=== PATIENT | female | born 1995 | race African-American/Black ===

== ENCOUNTER → 2021-05-22 15:43 | Outpatient (CLI) | payer OTHER, SELFPAY ==
--- NOTE | 2021-05-22 | DI.MRI.S_ITS ---
PROCEDURE: MR ANKLE LT WO CON INDICATIONS: LEFT FOOT DEFORMITY TECHNIQUE: Noncontrast sagittal T1 spin echo and T2 fast spin echo with fat saturation, axial proton density fast spin echo and T2 fast spin echo with fat saturation, coronal T1 spin echo and T2 fast spin echo with fat saturation through the ankle/hindfoot. COMPARISON: [facility] [place], CR, XR FOOT 3 VIEWS WEIGHT BEARING BILATERAL, 05/08/2021, 10:32. FINDINGS: Image quality: Excellent. Bones and joints: Pes planus alignment is noted with hindfoot valgus. No acute trabecular bone injury. No osteochondral lesion is seen in the talar dome. Traction cystic changes are seen in the distal fibula. Mild degenerative spurring of the dorsal aspect of the talonavicular joint. Medial structures: Chronic low-grade sprain of the deep fibers of the deltoid ligament. The tibiospring ligament is bowed medially around the talar head. The visualized portions of the spring ligament complex are grossly intact. A small amount of fluid is seen tracking along the posterior tibialis tendon sheath, consistent with mild tenosynovitis. The flexor digitorum longus and flexor hallucis longus tendons are intact. The posterior tibial neurovascular bundle appears normal within the tarsal tunnel, without extrinsic mass effect. Lateral structures: There is chronic complete tearing of the anterior talofibular ligament. The calcaneofibular ligament appears thickened, consistent with a remote prior sprain. The posterior talofibular ligament is grossly intact. The anterior and posterior inferior tibiofibular ligaments are intact. The peroneus longus and brevis tendons demonstrate normal location and morphology. A ganglion cyst is seen arising from the lateral sinus tarsi measuring approximately 9 x 6 x 7 mm. There is partial effacement of the fat signal in the sinus tarsi. Anterior structures: The tibialis anterior, extensor hallucis longus, and extensor digitorum longus tendons appear intact. The dorsal talonavicular ligament appears intact. Posterior and plantar structures: Achilles tendon is intact. Tiny nonedematous plantar calcaneal enthesophyte. The proximal plantar fascia is intact. No abductor digiti quinti muscle atrophy to suggest Lopez neuropathy. IMPRESSION: 1. Pes planus alignment with hindfoot valgus. 2. Mild posterior tibialis tenosynovitis without a discrete tendon tear. 3. Chronic low-grade sprain of the deep fibers of the deltoid ligament. The tibiospring ligament is bowed medially around the tibial head. 4. Chronic complete tearing of the anterior talofibular ligament. Chronic moderate grade sprain of the calcaneofibular ligament. 5. Small 9 mm ganglion cyst arising from the lateral sinus tarsi. Dictated by: Tony Mederos M.D. on 05/22/2021 at 16:54 Approved by: Tony Mederos M.D. on 05/22/2021 at 17:03
== END ==
PROVIDERS: Referring Provider Orthopaedic Surgery Foot and Ankle Surgery; Visit Provider Orthopaedic Surgery Foot and Ankle Surgery
DX: M21.42 Flat foot [pes planus] (acquired), left foot (principal); M21.072 Valgus deformity, not elsewhere classified, left ankle; M65.872 Other synovitis and tenosynovitis, left ankle and foot; S93.422A Sprain of deltoid ligament of left ankle, initial encounter; S93.412A Sprain of calcaneofibular ligament of left ankle, initial encounter; S93.492A Sprain of other ligament of left ankle, initial encounter; M67.472 Ganglion, left ankle and foot
CPT/HCPCS: 73721

== ENCOUNTER → 2021-07-03 13:18 | Outpatient (CLI) | payer OTHER, SELFPAY ==
[2021-07-03 16:06] LABS: COVID19 -Nasal RAPID Negative (Negative)
== END ==
PROVIDERS: Visit Provider Family Medicine Sleep Medicine
DX: Z20.822 Contact with and (suspected) exposure to COVID-19 (principal)
CPT/HCPCS: 87635; C9803

== ENCOUNTER 2021-07-05 10:28 | Day surgery (SDC) | payer OTHER, SELFPAY ==
[2021-07-02 10:51] VITALS: BMI 40.6
[2021-07-05] VITALS (12 sets, daily range): BP systolic 101–147; BP diastolic 51–88; PULSE 83–98; RESP 10–18; TEMP 36.1–36.6; O2SAT 96–100; BMI 40.6
--- NOTE | 2021-07-05 | DI.RAD.S_ITS ---
PROCEDURE: XR FOOT LT 2V INDICATIONS: LT FOOT SURGERY TECHNIQUE: 8 fluoroscopic images of the left foot. COMPARISON: [facility], CR, XR FOOT 3 VIEWS WEIGHT BEARING BILATERAL, 05/08/2021, 10:32. Findings/impression: Fluoroscopic images of the left foot demonstrate interval placement of midfoot and hindfoot surgical hardware. Correlation with the surgeons op note is suggested. Dictated by: Anjum Frausto M.D. on 07/05/2021 at 16:37 Approved by: Anjum Frausto M.D. on 07/05/2021 at 16:39
[2021-07-05] MEDS: LACTATED RINGERS 1,000 ML 84 ML IV ×2 (11:23→14:20)
--- NOTE | 2021-07-05 11:37 | PM.PREOP ---
Pre-operative Note COVID-19 COVID-19 status: Negative Interval Note History & Physical reviewed/Exam performed by Physician: Yes Changes to H&P: No
[2021-07-05] MEDS: CEFAZOLIN 2 GM/20 ML SYRINGE IV (12:35)
--- NOTE | 2021-07-05 13:31 | SUR.OPER ---
Lateral on padded OR bed with monreal bag positioner, head on pillow, gel axillary roll in place, right leg bent with gel pad under knee to foot, left leg straight with folded blankets taped to bed for additional support. Right arm padded and secured to armboard, pillow in place between arms, and left arm secured across right arm. Safety belt at abdomen, tape over blanket securing right leg.
--- NOTE | 2021-07-05 14:53 | SUR.OPER ---
1405 - Patient positioning changed per Dr. Harris to supine. Bilateral arms palms up, padded, and secured to armboards at <90 degrees. Safety strap across abdomen. Head to pillow.
--- NOTE | 2021-07-05 16:09 | PM.OP.1 ---
Operative Date/Time/Diagnoses Date of procedure: 07/05/21 Time of procedure: 16:09 Pre-op diagnosis: 1. Congenital pes planovalgus, left 2. Gastroc contracture 3. Pes planus 4. BMI 40 Post-op diagnosis: same Procedure & Clinicians Procedure: 1. Transfer tendons the flexor digitorum longus CPT code 76470 left 2. Reefing/repair collateral ligament, spring ligament left CPT code 68213 3. Osteotomy calcaneus CPT code 17355 left modifier 59 4. Cotton osteotomy left medial cuneiform CPT code [id number] 5. Gastrocnemius recession, Arias CPT code 03729 modifier 59 This procedure was performed with a modifier number 22 due to obesity 40.6 BMI and resultant difficulty in position with exposure of surgery to approximately twice as long as standard flatfoot reconstruction. During the operation, the services of a physician director surgical were medically indicated and necessary to provide the exposure of the operative site for the surgical procedure and to maintain the limb in a proper position to carry out the operation safely and efficiently. Without a qualified triage assistant being present this would extended the operative procedure and made the procedure technically more difficult to perform. Same procedure as scheduled: Yes Indications: Patient is a 26-year-old female with congenital pes planus. She has had painful flat feet her entire life. She has failed conservative treatments with customized orthotics and physical therapy. She has been indicated for surgery. The risks and benefits of the procedure have been discussed with the patient given the opportunity to ask questions. The risks of surgery include but are not limited to infection, malunion, nonunion, persistence of pain, damage to nerves and blood vessels, persistent or recurrent deformity, posttraumatic arthritis, DVT, PE, cardiopulmonary complications and . The patient expressed a thorough understanding of the risks and benefits of surgery and has elected to proceed. Consent was signed in the office. Patient has no personal history of blood clots. She does take oral contraceptives. We discussed using Xarelto and for 2 weeks postop for DVT prophylaxis and transition likely to aspirin. No drug allergies will get Ancef 2 g for preoperative antibiotic Surgeon: Frances Harris Corporate Account Executive: Bayron Hare Anesthesia Type: General, Spinal and Peripheral nerve block Operative Notes Findings: Flexible pes planovalgus foot. There is a discrepancy between dorsiflexion of the ankle with knee extension knee flexion consistent with a gastroc contracture. Decision was made for gastroc recession. Spring ligament was patulous but not grossly torn. This was however loose and was reefed for repair with FiberWire suture After medial calcaneal displacement osteotomy and FDL transfer to navicular there was residual foot supination as expected this was addressed with the Cotton osteotomy of the medial cuneiform with the trabecular metal wedge Closure Type: primary Specimen(s): none sent Prosthetic devices, grafts, tissues, transplants, or devices: Arthrex 4.75 by 15 mm bio tenodesis screw for the FDL transfer Arthrex 6.7 headed cannulated screws 1 long thread 50 mm screw and 140 mm short thread screw for the medial displacement calcaneal osteotomy Arthrex 7.5 x 16 mm cotton osteotomy wedge-bio syn Estimated Blood Loss (mL): 30 Blood products transfused: none Tourniquet time (min): 127 Procedure in detail: Patient was seen in the preoperative area the site of surgery was marked informed consent confirmed. She was brought back to the operating room by the anesthesia team. The patient and the cyst had made the decision for spinal anesthesia the supplement general. Once this was placed the patient was positioned on the operative table on a beanbag. Then into the lateral position. Axillary roll was placed. The down leg was well padded. Well-padded thigh tourniquet was placed on the operative extremity. The left lower extremities prepped and draped in standard sterile fashion. A formal time-out procedure was performed confirming the patient's side and site of surgery administration of appropriate preoperative antibiotics. All were in agreement. Implants were in the room. Implant field representatives director present. Attention was turned to the left lower extremity a examination of the leg was completed the patient had a flexible pes planus deformity. Patient was taken through a ankle range of motion with the knee flexed and extended. They did have a gastroc contracture demonstrated by 0? of dorsiflexion with the knee fully extended and 20? of dorsiflexion with the knee in a fully flexed position therefore we felt the gastrocnemius lengthening was necessary. Once the decision was made the Esmarch bandage was used to exsanguinate the limb and the tourniquet was raised on the thigh to 250 mmHg. Gastroc lengthening/recession: Incision was made at the aponeurosis of the gastroc and soleus tendons midline in the calf. Careful dissection was carried through the skin subcutaneous tissue. Lesser saphenous vein and the sural nerve were observed and protected. The fascia was opened and the tendon isolated from medial to lateral borders and incised with the ankle stretch in dorsiflexion lengthening approximately 2.5 cm. This provided excellent 20? of dorsiflexion with the knee extended. The incision was closed with 2-0 Vicryl deep and 4-0 nylon in the skin. Medialized and calcaneal osteotomy: This was done in a minimally invasive fashion. K-wire was used under fluoroscopy to draw the trajectory of the osteotomy in the central point as well as the planned trajectory of the screws. Then a small incision was made centrally area this was dissected down to the periosteum along the lateral calcaneus. The dissecting tool was used to remove the periosteum in line with the planned osteotomy. This was posterior to the sural nerve and peroneal tendons. Next the osteotomy were was advanced transverse across the calcaneus through the medial wall and then brought back to a fdc point then the osteotomy was completed in the standard quadrant fashion 1st with the near upper quadrant in the far upper quadrant in the near plantar quadrant and the far plantar quadrant. Once this was completed additional [place] elevators and osteotomies were used to make sure that they osteotomy was mobilized. Then this was shifted medial between 1,30-,1/2 its width. This was then fixed percutaneously with 26.7 cannulated screws these were countersunk. The more plantar screw was found thread and the superior screw was short thread. This was checked on fluoroscopy and appropriate shift in alignment obtained. The wounds were then irrigated and closed with Vicryl and nylon sutures. FDL transfer and posterior tibialis tendon debridement and spring ligament reefing: Next the leg was externally rotated and the beanbag was let down for this. The medial incision was made which began initially at the tip of the medial malleolus and extended along the medial border of the 1st metatarsal. The incision was extended more proximal to get a good debridement of the posterior tibialis tendon. The dissection was carried through the skin subcutaneous tissue to the flexor retinaculum. This was opened and the posterior tibialis tendon was debrided. Tenosynovectomy was performed. Dissection was then carried distal to the abductor hallucis and this was retracted inferiorly. The FDL was isolated behind the posterior tibialis tendon followed towards the knot of Dickson and harvested just before this. The FDL tendon was then prepared with a FiberLoop and this was measured easily passing through 5 mm Sizer. Dissection was then completed dorsal and plantar to the navicular. A wire was placed from proximal plantar to lateral dorsal through the navicular and out the lateral foot for a tunnel trajectory. This was overdrilled to create a 5 mm tunnel. The tendon was passed through with the passing needle and a 4.75 x 15 mm bio tenodesis screw from the Arthrex set was used to secure this while pulling tension on the tendon transfer. Spring ligament reefing/repair: Spring ligament had been expected. There was no obvious tear expose talar head however there was a patulous ligament that was easily grasped within the pickups and was notably loose. Decision was made for shortening and reefing of this tendon this was done so in the standard fashion with FiberWire sutures reefing nonabsorbable suture. Cotton osteotomy: Once the tendon transfers were completed the foot was then residual supination as expected. The separate incision was made over the medial cuneiform dorsally. This was dissected down to the bone. The center of the medial cuneiform was identified and a guidewire placed. This guided the TTS saw for the osteotomy. Care was taken to make sure the plantar bone was not violated. This was then gradually opened using the sequential osteotomes and then the sweetheart lamina records technician. This was followed by trials for the Cotton metal wedge. A 16 x 7.5 was ultimately selected. This was placed using the K-wire retractor to help hold open the osteotomy and tamped into place. Excellent stability was obtained. This provided excellent correction of the forefoot supination. Final x-rays were taken AP, oblique and lateral and axial planes demonstrated appropriate alignment of all hardware and correction of the talonavicular angle and Meary's angle. At this point all wounds were irrigated and closed in a layered fashion with 2-0 Vicryl 4-0 Monocryl and 4-0 and 3-0 nylon. Sterile dressing was placed with Xeroform gauze and Webril. Bulky [place] cotton was used the patient was placed in a well-padded posterior and U splint. There were broken from anesthetic and taken to the recovery room. Counts were correct Complications: other (Was noted on awaking from anesthetic the patient did vomit well the LMA was still in place there was suctioned in the operating room and had good status before transfer to the PACU) Post-operative Condition: stable Disposition: PACU Plan for aftercare: Nonweightbearing x6 weeks. Elevate above the heart level for swelling and pain control. Will take oral Xarelto 1 tab daily starting postoperative day 1 for blood clot prophylaxis. Then will transition to aspirin. Will have oxycodone for pain as well as gabapentin and may take Tylenol . Follow-up in 2 weeks orthopedic Clinic
[2021-07-05] MEDS: ONDANSETRON 4 MG/2 ML INJ IV (16:44)
[2021-07-05] MEDS: OXYCODONE IR 5 MG TABLET PO ×2 (16:45→16:55)
--- NOTE | 2021-07-05 16:47 | SUR.PHASEI ---
Block start time 1615 in PACU after time out. Monitoring initiated and maintained throughout procedure. Oxygen given per anesthesiologist instructions. Patient remained stable throughout procedure, no adverse reactions noted. Block end time 1623 .
--- NOTE | 2021-07-05 16:53 | SUR.PHASEI ---
Dr Corrales at bedside. Updated on patient pain level 10/02. See new order for IV acetaminophen and oxycodone.
[2021-07-05] MEDS: ACETAMINOPHEN IV 1,000 MG/100 ML VIAL 400 MG IV (16:55)
--- NOTE | 2021-07-05 18:07 | SUR.PHASEII ---
Pt able to stand at bedside. Full sensation of perineum and able to hop on right leg to WC. Discharge instructions reviewed with mom She. Dr Harris informed of patient stating she felt pressure but oc ti was better. stated that she could loosen the splint for excessive swelling, teaching done with mom on how to do this without opening dressing or exposing incision.
== END 2021-07-05 18:05 | disposition home or self-care (01) ==
PROVIDERS: PCP Physician Assistant; Referring Provider Orthopaedic Surgery Foot and Ankle Surgery; Visit Provider Orthopaedic Surgery Foot and Ankle Surgery
PROC: 0QBP0ZZ Excision of Left Metatarsal, Open Approach (ICD-10-PCS; CPT 28292; principal; 2021-07-05 12:00)
PROC: (CPT 27687; 2021-07-05 12:00)
DX: Q66.6 Other congenital valgus deformities of feet (principal); M62.89 Other specified disorders of muscle; E66.9 Obesity, unspecified; Z68.41 Body mass index [BMI] 40.0-44.9, adult
CPT/HCPCS: 28300; 27698; 27691; 28304; 27687; 73620; 76000; 81025; J0131; J0690; J1100; J1885; J2250; J2405; J2704; J3010

== ENCOUNTER → 2022-03-05 13:28 | Outpatient (CLI) | payer OTHER, SELFPAY ==
[2022-03-05 14:17] LABS: COVID19 -Nasal RAPID Negative (Negative)
== END ==
PROVIDERS: PCP Physician Assistant; Referring Provider Orthopaedic Surgery Foot and Ankle Surgery; Visit Provider Orthopaedic Surgery Foot and Ankle Surgery
DX: Z20.822 Contact with and (suspected) exposure to COVID-19 (principal)
CPT/HCPCS: 87635; C9803

== ENCOUNTER 2022-03-07 06:22 | Day surgery (SDC) | payer OTHER, SELFPAY ==
[2022-03-06 10:08] VITALS: BMI 41.7
[2022-03-07] VITALS (14 sets, daily range): BP systolic 105–139; BP diastolic 58–88; PULSE 12–120; RESP 12–20; TEMP 36.3–36.5; O2SAT 89–112; BMI 41.7
--- NOTE | 2022-03-07 | DI.RAD.S_ITS ---
PROCEDURE: XR FOOT RT MIN 3V INDICATIONS: RECON RIGHT FOOT TECHNIQUE: Intraoperative fluoroscopic spot films COMPARISON: [facility], CR, XR FOOT LT 2V, 07/05/2021, 14:06. FINDINGS: Low resolution intraoperative fluoroscopic spot films of the calcaneus show sequential osteotomy transfixed by cannulated screws IMPRESSION: Fluoroscopic guidance Approved by: Sudeep Ferro M.D. on 03/07/2022 at 13:28
[2022-03-07] MEDS: LACTATED RINGERS 1,000 ML 84 ML IV ×3 (07:02→11:11)
--- NOTE | 2022-03-07 07:29 | SUR.OPER ---
Supine on padded OR bed, head on pillow, arms secured on padded arm boards at <90 degrees abduction, legs uncrossed, safety belt at abdomen, tape over blanket over nonoperative leg.
--- NOTE | 2022-03-07 07:36 | P.OP_ITS ---
Operative Date/Time/Diagnoses Date of procedure: 03/07/22 Time of procedure: 08:00 Pre-op diagnosis: Congenital pes planovalgus right, gastroc contracture, pes planus, BMI 41 Post-op diagnosis: same Procedure & Clinicians Procedure: 1. Transfer tendons flexor digitorum longus CPT code 21598 right 2. Osteotomy calcaneus CPT code 71482, right modifier 59 3. Cotton osteotomy right medial cuneiform CPT code 57724 modifier 59 4. Gastrocnemius recession Arias CPT code 08579 modifier 59, right This procedure was performed with a modifier #22 due to obesity BMI 41.8 the resultant difficulty in positioning with exposure of surgery taking approximately twice as long as a standard flatfoot reconstruction During the operation, the services of a physician surgical services coordinator were medically indicated and necessary to provide the exposure of the operative site for the surgical procedure and to maintain the limb in a proper position to carry out the operation safely and efficiently. Without a qualified insurance administrative assistant being present this would extended the operative procedure and made the procedure technically more difficult to perform. Same procedure as scheduled: Yes Indications: The patient is a 19-year-old female with congenital pes planus she is had painful flatfeet for entire life. She is failed conservative treatments with customized orthotics and physical therapy. She is been indicated for surgical reconstruction. She previously underwent reconstruction of the left side and appears for the right side today. The risks benefits and the procedure have been discussed with the patient she is been given the opportunity to ask questions. The risks include but are not limited to infection, malunion, nonunion, persistent of of pain, under or over correction of deformity, damage to nerves and blood vessels, persistent or recurrent deformity. Posttraumatic arthritis, blood clots, pulmonary embolism, cardiopulmonary complications and . The patient expressed a thorough understanding of the risks and benefits of surgery and has elected to proceed. Consent was signed in the office. The patient has no personal or family history of blood clots. She does take oral contraceptives. We discussed using Xarelto for 2 weeks postop for DVT prophylaxis and then transitioned to aspirin. She has no drug allergies will get Ancef 2 g as preoperative antibiotic. Surgeon: Frances Harris Host/Hostess Head: Shahnaz Fermin Anesthesia Type: General and Peripheral nerve block Operative Notes Findings: Pes planovalgus. Positive Silfverskiold. Residual forefoot supination after hindfoot correction requiring Cotton osteotomy. Jewish of alignment plantar grade foot after completion of reconstruction. Closure Type: primary Specimen(s): none sent Prosthetic devices, grafts, tissues, transplants, or devices: Calcaneus osteotomy: Arthrex 6.7 short thread cannulated screws -50 and 45 mm Cotton osteotomy: Arthrex 16 x 7.5mm bio cotton wedge, ( 4 hole 2.7 plate Synthes mini frag set 2.7 screws 24 mmx2) FDL transfer: 4.75 x 15mm biotenodesis screw Arthrex Estimated Blood Loss (mL): 30 Blood products transfused: none Tourniquet time (min): 130 Procedure in detail: Patient was seen in the preoperative area the site of surgery marked informed consent confirmed. She was brought back to the operating room by the anesthesia team placed supine on operative table. A regional block was placed by the anesthesiology team for postoperative pain control. Patient was positioned supine with a large ipsilateral thigh bump. A thigh tourniquet was placed. SCD was placed on the contralateral lower extremity. Right lower extremity was prepped and draped in standard sterile fashion. A formal time-out procedure was performed confirming the patient's side and site of surgery administration of appropriate preoperative antibiotics. All were in agreement. Attention was turned to the right lower extremity examination of the leg was completed this demonstrated a flexible pes planus deformity. Patient was taken through ankle range of motion with the knee flexed and extended. There was a positive Silfverskiold demonstrating a gastroc contracture. This indicated the gastrocnemius lengthening. Then once this was decided the Esmarch bandage was used to exsanguinate the limb and the tourniquet was raised on the thigh to 250 mmHg. Gastroc recession Incision was made at the aponeurosis of the gastroc and soleus tendons in the midline of the calf slightly to the medial side. Careful dissection was carried through the skin and subcutaneous tissue. Lesser saphenous vein and sural nerve were protected. Fascia was opened and the tendon was isolated from medial to lateral borders and incised with the ankle in dorsiflexion lengthening approximately 2.5 cm. This provided excellent improvement of at least 20? of dorsiflexion with the knee extended. The incision was then irrigated and closed with 2-0 Vicryl deep and 4-0 nylon in the skin. Medialized and calcaneal osteotomy. This was done in a minimally invasive fashion. A K-wire was used under fluoroscopy to draw the trajectory of the osteotomy and the central point as well was planned for the trajectory of the screws. Small incision was made centrally in this area and dissected down to the periosteum along the lateral calcaneus. The dissecting tool was used to remove the periosteum in line with the planned osteotomy. This was posterior to the sural nerve and peroneal tendons. Next the osteotomy was advanced across the calcaneus through the medial wall and then the bur was brought back to the longterm point where the osteotomy was completed in the standard quadrant fashion with the 1st quadrant being the near upper quadrant followed by the far upper quadrant then the plantar near quadrant and then the far plantar quadrant. Once this was completed additional Alpha elevators and osteotomes were used make sure that the osteotomy was mobilized. Then this was shifted medial about 4 mm and fixed percutaneously with 2 6.7 mm cannulated screws from the Arthrex set. These were countersunk. These were checked on fluoroscopy for appropriate shift and length and alignment. Wounds were then irrigated and closed with Vicryl and nylon sutures. The FDL transfer posterior tibialis tendon debridement. Next the leg was externally rotated attention taken to the medial foot. A medial incision was made which began initially at the tip of the medial malleolus and then extended along the medial border of the 1st metatarsal. This was extended more proximal to get a good debridement of the posterior tibialis tendon. The dissection was carried through the skin and subcutaneous tissue to the flexor retinaculum. This was opened and the posterior tibialis tendon was debrided. The distal tendon was patulous and torn and was excised. Dissection was carried distal to the abductor hallucis and this was retracted inferiorly. The FDL was isolated behind the posterior tibialis tendon and followed towards the knot of Dickson and harvested just before this. The FDL tendon was then prepared with a FiberLoop and this was measured easily passing through a 5 mm Sizer. Dissection was completed dorsal and plantar to the navicular. A wire was placed from proximal plantar to lateral dorsal through the navicular and out through the lateral foot for a tunnel trajectory. This was overdrilled to create a 5 mm tunnel. The tendon was then passed through using the passing needle and a 4.75 x 15 mm bio tenodesis screw from the Arthrex set was used to secure this while pulling tensi on on the tendon transfer. The posterior tibialis tendon was tenodesed to the FDL transfer above the groove. Spring ligament was inspected and was intact. The tendon transfers were completed the foot was then and residual supination as expected. Cotton osteotomy Separate incision was made over the medial cuneiform dorsally. This was dissected down to bone. In the center of the medial cuneiform was identified and a guidewire placed. The TPS saw was used for the osteotomy care was taken to make sure the plantar bone was not violated. This was gradually opened using the sequential osteotomes and the sweetAutoESLrt lamina covered buckle assembler. It was noted on opening the osteotomy there appeared to be a crack into the distal medial cuneiform fragment, therefore after the metal trial wedges were placed and ultimately a 7.5 mmx 16mm was selected, a plate from the Synthes mini frag set was used to bridge the wedge, as Arthrex did not have one available. This was a mini frag plate using 2.7 screws over the bio tenodesis wedge which captured the fragment distally. This provided excellent correction of the forefoot supination. Final x-rays were taken AP oblique and lateral and axial planes demonstrated appropriate alignment of the hardware and correction of talonavicular ankle and Meary's angle. At this point the wounds were irrigated and closed in a layered fashion with 2-0 Vicryl 4-0 Monocryl and 4-0 and 3-0 nylon suture. Sterile dressing was placed with Xeroform gauze and Webril. Bulky Lagunas cotton was placed in a well-padded posterior and U splint. The patient was woken from anesthetic and taken to the recovery room. Counts were correct. Complications: none Post-operative Condition: stable Disposition: PACU Plan for aftercare: Patient will be toe-touch or nonweightbearing on the right lower extremity for 6 weeks postoperatively. At the 1st postoperative visit, if the incisions are appropriate sutures will be removed, otherwise these will be retained until follow-up with Dr. Harris. At the 1st postoperative appointment patient will be transitioned to a short leg well-padded cast in neutral position. This will remain in place for an additional 4 weeks and she will return at 6 weeks postoperative to see Dr. Harris. She will bring her boot and arch support to the 6 week postoperative appointment to prepare for transition from the cast to the boot with arch support. This patient has already been issued prescriptions for these are oxycodone for pain medication, gabapentin for additional pain and Zofran as an anti nausea medication. Additionally the patient has been issued a prescription for Xarelto which she will start postoperative day 1 for blood clot prophylaxis. She will take this for 2 weeks and then be transitioned to aspirin 325 mg a day for an additional 4 weeks after the Xarelto has completed.
[2022-03-07] MEDS: CEFAZOLIN 2 GM/100 ML PREMIX 100 ML IV (08:15)
[2022-03-07] MEDS: BUPIVACAINE 0.5% W/ EPI (PF) 30 ML VIAL INJ (08:31)
--- NOTE | 2022-03-07 12:33 | PM.PREOP ---
Pre-operative Note COVID-19 COVID-19 status: Negative Interval Note History & Physical reviewed/Exam performed by Physician: Yes Changes to H&P: No
[2022-03-07] MEDS: BENZOCAINE/MENTHOL 1 LOZ PKT 1 EACH PO (13:11)
[2022-03-07] MEDS: OXYCODONE IR 5 MG TABLET PO ×2 (13:11→14:15)
--- NOTE | 2022-03-07 13:15 | SUR.PHASEII ---
Report received from BRETT Purdy. Pt dozing on and off. C/O sore throat. Lozenger given. Pt states pain 03/04. Pt unable to feel or move right toes. Pt able to feel at knee and move leg.
--- NOTE | 2022-03-07 13:35 | SUR.PHASEII ---
At 1315 VS check, O2 sats 89%. Placed on 2LNC with O2sats up to 96%. Lungs with scattered expiratory wheezing. Started on IS. Able to get up to 3000ml. Dr Rasmussen notified. Will give duo neb.
[2022-03-07] MEDS: ALBUTEROL/IPRATROPIUM 3 ML AMPUL INH (13:37)
--- NOTE | 2022-03-07 14:53 | SUR.PHASEII ---
Lungs clear after neb tx. Able to wean off O2 with sats maintained 97-99%.
== END 2022-03-07 14:36 | disposition home or self-care (01) ==
PROVIDERS: PCP Physician Assistant; Referring Provider Orthopaedic Surgery Foot and Ankle Surgery; Visit Provider Orthopaedic Surgery Foot and Ankle Surgery
PROC: (CPT 28735; principal; 2022-03-07 07:45)
DX: Q66.6 Other congenital valgus deformities of feet (principal); M62.89 Other specified disorders of muscle; M72.2 Plantar fascial fibromatosis; E66.01 Morbid (severe) obesity due to excess calories; Z68.41 Body mass index [BMI] 40.0-44.9, adult; G89.18 Other acute postprocedural pain
CPT/HCPCS: 27691; 28300; 28304; 27687; 64450; 73630; 76000; 81025; C1713; J0690; J1100; J1170; J1885; J2250; J2405; J2704; J3010

== ENCOUNTER 2023-06-23 17:32 | Emergency (ER) | payer OTHER, SELFPAY ==
[2023-06-23 17:45] VITALS: BP 140/91; PULSE 111; RESP 18; TEMP 36.4; O2SAT 99; BMI 39.9
[2023-06-23 18:31] LABS: Strep Grp A by PCR Rapid Negative (Negative)
--- NOTE | 2023-06-23 18:32 | ED_ITS ---
HPI - URI/Sore Throat <Griselda Sanchez PA-C - Last Filed: 06/23/23 19:24> General Chief Complaint: Upper Respiratory Symptoms Stated Complaint: Throat pain, sent by PCP Time Seen by Provider: 06/23/23 18:04 History of Present Illness HPI Narrative: 28-year-old female presents to the ED with a sore throat for the last 8 days. Patient states that it started with a tickle in her throat, she was seen at the [facility] 6 days ago, strep test was negative, culture results are still outstanding. She was empirically treated for strep pharyngitis with amoxicillin. Patient has been taking the amoxicillin for the past. Patient was seen again at the clinic yesterday, they sent her to the ED for further evaluation due to concern for an abscess. Patient endorses pain with swallowing, however that it is better than it was last week. Patient is controlling her secretions well. Airway is patent. Patient denies any rashes. Patient endorses a fever 3 days ago, however no fevers since then. Patient denies nausea, vomiting, rhinorrhea. Patient endorses some postnasal drip and sinus congestion, cough. Related Data Previous Rx's Medication Instructions Recorded ondansetron 4 mg disintegrating 4 mg PO Q8H PRN nausea and 07/05/21 tablet vomiting #7 tabs oxycodone 5 mg tablet 5 - 10 mg (1 - 2 x 5 mg) PO Q4H 07/05/21 PRN pain #42 tabs methylprednisolone 4 mg tablets in See Rx Instructions PO .COMPLEX 06/23/23 a dose pack (Medrol (Kade)) #21 ea Allergies Allergy/AdvReac Type Severity Reaction Status Date / Time No Known Drug Allergies Allergy Verified 06/23/23 17:43 Review of Systems <Griselda Sanchez PA-C - Last Filed: 06/23/23 19:24> Constitutional Constitutional: Denies chills, Denies fatigue, Reports fever(s), Denies frequent falls, Denies lethargy and Denies weakness Eyes Eyes: Denies change in vision, Denies eye discharge, Denies irritation and Denies loss of vision ENT Ears, Nose, Mouth, and Throat: Denies change in voice, Denies dizziness, Denies neck pain, Reports odynophagia, Reports post nasal drip, Reports sinus pressure, Reports sore throat and Denies throat swelling Cardiovascular Cardiovascular: Denies chest pain, Denies irregular heart rhythm, Denies lightheadedness, Denies palpitations, Denies dyspnea, Denies dyspnea on exertion and Denies orthopnea Respiratory Respiratory: Denies cough, Denies dyspnea, Denies dyspnea on exertion and Denies wheezing Gastrointestinal Gastrointestinal: Denies abdominal pain, Denies change in bowel habits, Denies diarrhea, Denies nausea, Reports odynophagia and Denies vomiting Musculoskeletal Musculoskeletal: Denies neck pain and Denies numbness Integumentary/Breasts Skin/Breast: Denies pruritus, Denies erythema, Denies rash and Denies wounds Neurologic Neurologic: Denies behavioral changes, Denies confusion, Denies dizziness, Denies frequent falls, Denies loss of vision, Denies numbness and Denies weakness Psychiatric Psychiatric: Denies anxiety, Denies behavioral changes, Denies confusion, Denies depression, Denies homicidal ideation and Denies suicidal ideation Endocrine Endocrine: Denies fatigue, Denies flushing and Denies palpitations Hematologic/Lymphatic Hematologic/Lymphatic: Denies easy bruising Allergic/Immunologic Allergic/Immunologic: Denies urticaria, Denies throat swelling and Denies wheezing Patient History <Griselda Sanchez PA-C - Last Filed: 06/23/23 19:24> Surgical History Hx of foot surgery (07/05/21) Social History Smoking Status: Current some day smoker alcohol intake: current Smoking Status: Current some day smoker alcohol intake frequency: other Substance Use Type: does not use Exam <Griselda Sanchez PA-C - Last Filed: 06/23/23 19:24> Narrative Exam Narrative: Const General:?cooperative, healthy appearing and comfortable [facility] Head:?normal to inspection Ears:?hearing grossly normal bilaterally Nose:?external nose normal Face and sinus:?normal facial exam and sinuses nontender Mouth:?oral mucosae normal Throat:?posterior oropharynx normal; bilateral tonsillar exudates noted on exam; airway is patent; patient is controlling secretions well. Eyes General:?appearance normal, both eyes and all related structures Neck Neck:?normal visual inspection and no lymphadenopathy noted Resp Effort & Inspection:?normal respiratory effort Auscultation:?clear to auscultation bilaterally Cardio Rate:?regular rate Rhythm:?regular rhythm Neuro General:?patient alert, patient awake and patient oriented x3 Initial Vital Signs Initial Vital Signs: Vital Signs Temperature 97.5 F L 06/23/23 17:45 Pulse Rate 111 H 06/23/23 17:45 Respiratory Rate 18 06/23/23 17:45 Blood Pressure 140/91 H 06/23/23 17:45 Pulse Oximetry 99 06/23/23 17:45 Oxygen Delivery Method Room Air 06/23/23 17:45 <Nidhi Newton DO - Last Filed: 06/26/23 10:37> Initial Vital Signs Initial Vital Signs: Vital Signs Temperature 97.5 F L 06/23/23 17:45 Pulse Rate 111 H 06/23/23 17:45 Respiratory Rate 18 06/23/23 17:45 Blood Pressure 140/91 H 06/23/23 17:45 Pulse Oximetry 99 06/23/23 17:45 Oxygen Delivery Method Room Air 06/23/23 17:45 Course <Griselda Sanchez PA-C - Last Filed: 06/23/23 19:24> Orders Ordered: ED Orders 06/23/23 17:51 Strep Grp A by PCR Rapid Stat Throat Culture Stat 06/23/23 18:41 Monotest Stat Vital Signs Vital signs: Vital Signs - 8 hr 06/23/23 17:45 Temperature 97.5 F L Pulse Rate 111 H Respiratory Rate 18 Blood Pressure 140/91 H Pulse Oximetry 99 Oxygen Delivery Method Room Air <Nidhi Newton DO - Last Filed: 06/26/23 10:37> Orders Ordered: ED Orders 06/23/23 17:51 Strep Grp A by PCR Rapid Stat Throat Culture Stat 06/23/23 18:41 Monotest Stat Vital Signs Vital signs: Vital Signs - 8 hr 06/23/23 17:45 Temperature 97.5 F L Pulse Rate 111 H Respiratory Rate 18 Blood Pressure 140/91 H Pulse Oximetry 99 Oxygen Delivery Method Room Air MDM - URI/Sore Throat <MESHA Carrero Last Filed: 06/23/23 19:24> Lab Data Labs: Lab Results 06/23/23 06/23/23 Range/Units 17:51 18:41 Monoscreen Negative (Negative) Group A Strep (PCR) Negative (Negative) MDM Narrative Medical decision making narrative: 28-year-old female presents to the ED with a sore throat for the last 8 days. Concern for strep pharyngitis versus viral pharyngitis versus mononucleosis versus other. Will obtain strep POC, mono test. Will reassess. Strep POC and mono test were negative. Will send for culture. Will extend antibiotic course from 7-10 days. Will prescribe prednisone. Recommend Tylenol, ibuprofen for pain. Recommend follow-up with PCP as soon as possible. ED return precautions discussed with patient. Patient verbalized understanding. Medical records reviewed: Yes <Nidhi Newton, - Last Filed: 06/26/23 10:37> Lab Data Labs: Lab Results 06/23/23 06/23/23 Range/Units 17:51 18:41 Monoscreen Negative (Negative) Group A Strep (PCR) Negative (Negative) Discharge Plan Departure Patient Disposition: Home Clinical Impression: Pharyngitis Qualifiers: Pharyngitis/tonsillitis etiology: unspecified etiology Qualified Code(s): J02.9 - Acute pharyngitis, unspecified Instructions: DI for Pharyngitis/Tonsillopharyngitis -- Adult Activity Restrictions/Additional Instructions: You were evaluated in the ED today for a sore throat. Your strep test and mono test were both negative. We will send the sample for culture as well. You are being prescribed 3 more days of antibiotics so you take antibiotics for a total of 10 days. You are also being prescribed a course of prednisone to help with the inflammation and swelling. You may take Tylenol, ibuprofen for pain. Please follow-up with your PCP as soon as possible. Return to the ED if you have worsening symptoms, trouble swallowing. Prescriptions: New methylprednisolone [Medrol (Kade)] 4 mg tablets,dose pack See Rx Instructions .ROUTE .COMPLEX Qty: 21 0RF Rx Instructions: for 6 days No Action oxycodone 5 mg tablet 5 - 10 mg PO Q4H PRN (Reason: pain) Qty: 42 0RF Rx Instructions: Acute pain postop exempt ondansetron 4 mg tablet,disintegrating 4 mg PO Q8H PRN (Reason: nausea and vomiting) Qty: 7 1RF Referrals: ProviderNini [Primary Care Provider] - Stand Alone Forms: Patient Portal/API ED Sign-out <Nidhi Newton DO - Last Filed: 06/26/23 10:37> Cosign ED Attending Cosignature Attestation: I was immediately available in the department for consultation. Patient case was actually staffed with Dr. Ford not myself.
[2023-06-23 18:56] LABS: Monotest Negative (Negative)
[2023-06-23 19:27] VITALS: BP 135/89; PULSE 89; RESP 18; O2SAT 99
== END 2023-06-23 19:28 | disposition home or self-care (01) ==
PROVIDERS: Emergency Medicine; Emergency Provider Student in an Organized Health Care Education/Training Program
DX: J02.9 Acute pharyngitis, unspecified (principal)
CPT/HCPCS: 36415; 86318; 87070; 87651; 99281; 99282

== ENCOUNTER → 2023-09-16 09:06 | Outpatient (CLI) | payer OTHER, SELFPAY ==
--- NOTE | 2023-09-16 | DI.MRI.S_ITS ---
PROCEDURE: MR ANKLE RT WO CON INDICATIONS: ANKLE IMPINGEMENT SYNDROME TECHNIQUE: Noncontrast sagittal T1 spin echo and T2 fast spin echo with fat saturation, axial proton density fast spin echo and T2 fast spin echo with fat saturation, coronal T1 spin echo and T2 fast spin echo with fat saturation through the ankle/hindfoot. COMPARISON: [facility], CR, XR FOOT 3 VIEWS WEIGHT BEARING BILATERAL, 05/19/2023, 9:27. [facility], CR, XR ANKLE 1 OR 2 VIEWS WEIGHT BEARING RIGHT, 05/19/2023, 9:51. [facility], MR, MR ANKLE LT WO CON, 05/22/2021, 15:53. FINDINGS: Image quality: Excellent. Bones and joints: Postsurgical changes are noted involving calcaneus and medial cuneiform with susceptibility artifacts. No gross marrow edema. No acute fracture or dislocation. No osteochondral injuries of talar dome. Small plantar calcaneal enthesophyte is seen. There is small tibiotalar joint effusion, no loose bodies. Medial structures: The posterior tibialis tendon appears thickened with mild surrounding edema and intrasubstance T2 hyperintense signal at the level of distal talus and talonavicular joint. The flexor digitorum longus, and flexor hallucis longus tendons are intact. The posterior tibial neurovascular bundle appears normal within the tarsal tunnel, without extrinsic mass effect. The deltoid ligament ligament is intact. The spring ligament is thickened. Lateral structures: The anterior talofibular, calcaneofibular, and posterior talofibular ligaments appear intact. More superiorly, the anterior and posterior tibiofibular ligaments appear intact, as is the intermalleolar ligament. The tibiofibular syndesmosis is normal in width at 2 mm or less. The peroneus longus and brevis tendons demonstrate normal location and morphology. Adjacent bony peroneal tubercle and retrotrochlear prominence are normal in size. The sinus tarsi demonstrates normal fatty signal, without edema, fibrosis, or cyst formation. Visualized sinus tarsi components (cervical ligament, interosseous talocalcaneal ligament, roots of the inferior extensor retinaculum) appear normal. Anterior structures: The tibialis anterior, extensor hallucis longus, and extensor digitorum longus tendons appear intact. The dorsal talonavicular ligament appears intact. Posterior and plantar structures: Achilles tendon is intact. Medial and lateral bands of the plantar fascia are of normal thickness. No abductor digiti quinti muscle atrophy to suggest Lopez neuropathy. IMPRESSION: 1. Postsurgical changes in calcaneus and medial cuneiform. No gross marrow edema. No acute fracture or dislocation. No osteochondral injuries of talar dome. 2. Suggestion of tendinosis/low-grade partial-thickness tear involving posterior tibialis tendon near its distal insertion. 3. Sprain/low-grade intrasubstance partial-thickness tear involving spring ligament complex. 4. Rest of the ankle tendons and ligaments are grossly intact. 5. Small plantar and dorsal calcaneal enthesophytes. Dictated by: Leodan De La Paz M.D. on 09/16/2023 at 16:04 Approved by: Leodan De La Paz M.D. on 09/16/2023 at 16:10
== END ==
PROVIDERS: Referring Provider Orthopaedic Surgery Foot and Ankle Surgery; Visit Provider Orthopaedic Surgery Foot and Ankle Surgery
DX: M25.871 Other specified joint disorders, right ankle and foot (principal); S93.491A Sprain of other ligament of right ankle, initial encounter; M77.31 Calcaneal spur, right foot
CPT/HCPCS: 73721